=== PATIENT | female | born 1995 | race Caucasian/White ===

== ENCOUNTER 2016-12-19 07:18 | Emergency (ER) | payer BC ==
[2016-12-19 07:30] VITALS: BP 110/60
--- NOTE | 2016-12-19 07:55 | ED ---
Throat Pain/Nasal Congestion - HPI Summary HPI Summary: 21 yr old female with the complaint of sore throat, cough for a few days. Denies drooling, denies fever. She is a college student at [employer]. She has been out of school since October. No other complaints. - History of Current Complaint Chief Complaint: UCRespiratory Time Seen by Provider: 12/19/16 07:42 - Allergies/Home Medications Allergies/Adverse Reactions: Allergies Allergy/AdvReac Type Severity Reaction Status Date / Time Amoxicillin [From Augmentin] Allergy Rash Verified 12/19/16 07:30 Clavulanic Acid Allergy Rash Verified 12/19/16 07:30 [From Augmentin] Home Medications: Home Medications NK [No Home Medications Reported] 12/19/16 [History Confirmed 12/19/16] PMH/Surg Hx/FS Hx/Imm Hx Previously Healthy: Yes - Surgical History Surgery Procedure, Year, and Place: Dental surgery. B/L pe tubes. Infectious Disease History: No Infectious Disease History: Denies: Traveled Outside the [place] in Last 30 Days - Family History Known Family History: Positive: None - Social History Alcohol Use: None Substance Use Type: Reports: None Smoking Status (MU): Never Smoked Tobacco Review of Systems Constitutional: Negative Eyes: Negative Positive: Sore Throat, Nasal Discharge Positive: Cough All Other Systems Reviewed And Are Negative: Yes Physical Exam Triage Information Reviewed: Yes Vital Signs On Initial Exam: Initial Vitals Temp Pulse Resp BP Pulse Ox 99.3 F 102 14 110/60 100 12/19/16 07:21 12/19/16 07:21 12/19/16 07:21 12/19/16 07:21 12/19/16 07:21 Appearance: Positive: Well-Appearing, No Pain Distress Skin: Positive: Warm, Skin Color Reflects Adequate Perfusion Head/Face: Positive: Normal Head/Face Inspection Eyes: Positive: Normal, EOMI ENT: Positive: Normal ENT inspection, Pharyngeal erythema, Nasal congestion. Negative: Tonsillar swelling Neck: Positive: Supple, Nontender, No Lymphadenopathy. Negative: Nuchal Rigidity Cardiovascular: Positive: Normal, RRR. Negative: Murmur Musculoskeletal: Positive: Strength/ROM Intact Neurological: Positive: Normal, Sensory/Motor Intact, Alert, Oriented to Person Place, Time, CN Intact II-III Psychiatric: Positive: Normal Diagnostics - Vital Signs Vital Signs Temp Pulse Resp BP Pulse Ox 12/19/16 07:21 99.3 F 102 14 110/60 100 - Laboratory Lab Statement: Any lab studies that have been ordered have been reviewed, and results considered in the medical decision making process. EENT Course/Dx - Course Course Of Treatment: 21 yr old with URI symptoms, cough, sore throat. neg rapid strep - Diagnoses Provider Diagnoses: Upper respiratory infection Discharge - Discharge Plan Condition: Good Disposition: HOME Patient Education Materials: Upper Respiratory Infection (ED) Referrals: Non Staff,Doctor [Primary Care Provider] - [facility] [place] [facility] [Outside]
== END 2016-12-19 08:19 | disposition home or self-care (01) ==
LOC: UCCORT 07:18
DX: J06.9 Acute upper respiratory infection, unspecified (principal); Z88.0 Allergy status to penicillin
CPT/HCPCS: 87651; 99211; G0463